=== PATIENT | female | born 1995 | race African-American/Black ===

== ENCOUNTER 2023-03-17 10:38 | Inpatient (IN) | payer MEDICAID, OTHER ==
[2023-03-17] MEDS ORDERED: Lidocaine 1% (PF) 30 ML VIAL SC PRN (20:06)
[2023-03-17] MEDS ORDERED: Ondansetron PF 4 MG/2 ML Vial IVP PRN (20:06)
[2023-03-17] MEDS ORDERED: Diphenoxylate HCl/Atropine Tablet PO PRN (20:06)
[2023-03-17] MEDS ORDERED: hydrALAZINE 20 MG/ML VIAL SLOW IVP PRN (20:06)
[2023-03-17] MEDS ORDERED: Acetaminophen 500 MG TAB PO PRN (20:06)
[2023-03-17] MEDS ORDERED: Methylergonovine 0.2 MG/ML VIAL IM PRN (20:06)
[2023-03-17] MEDS ORDERED: Tranexamic Acid 1,000 MG/10 ML VIAL IVP PRN (20:06)
[2023-03-17] MEDS ORDERED: fentaNYL 50 mcg/mL 1 mL Vial SLOW IVP PRN (20:06)
[2023-03-17] MEDS ORDERED: Carboprost 250 MCG/ML AMP IM PRN (20:06)
[2023-03-17] MEDS ORDERED: Promethazine HCl 25 MG/ML VIAL IM PRN (20:06)
[2023-03-17] MEDS ORDERED: Docusate 100 MG CAP PO PRN (20:06)
[2023-03-17] MEDS ORDERED: Misoprostol 200 MCG TAB PR PRN (20:06)
[2023-03-17] MEDS ORDERED: Ibuprofen 800 MG TAB PO PRN (20:14)
[2023-03-17] MEDS ORDERED: Oxytocin 30 units/NS 500 ML 500 ML IV SCH ×2 (20:15)
[2023-03-17] MEDS ORDERED: Lactated Ringer's 1,000 ML IV SCH (20:15)
[2023-03-17] MEDS ORDERED: Penicillin G Potassium 5 MILL.UNITS in Sodium Chloride 0.9% 100 ML IVPB SCH (20:15)
[2023-03-17 20:50] VITALS: BMI 32.1
[2023-03-17] MEDS ORDERED: Misoprostol 100 MCG TAB VAG SCH (21:00)
[2023-03-17 21:15] LABS: Hematocrit 34.2 % (34.9-44.5); Hemoglobin 12.2 g/dL (12.0-15.5); Mean Corpuscular HGB CONC 35.7 g/dL (32.0-36.0); Mean Corpuscular Hemoglobin 29.1 pg (27.0-33.0); Mean Corpuscular Volume 81.6 fl (81.6-98.3); Mean Platelet Volume 10.1 fl (7.4-10.4); Platelet Count 220 10x3/uL (150-450); RBC Distribution Width 13.3 % (11.5-14.5); Red Blood Cell (RBC) Count 4.19 10x6/uL (3.90-5.03); White Blood Cell (WBC) Count 11.8 10x3/uL (3.5-10.5)
[2023-03-17 22:38] LABS: Syphilis Antibody Nonreactive (Nonreactive); Syphilis Antibody Index 0.05 S/CO (<1.00 Non-Reactive)
[2023-03-17 22:39] LABS: HBSAg Index 0.17 S/CO (0-0.99); Hep B Surf Ag - L&D Non-Reactive S/CO (NonReactive)
[2023-03-18] MEDS: Penicillin G 2.5 MILL.units 2.5 MILL.UNITS in Premix 1 BAG IVPB SCH ×3 (01:44→10:35)
[2023-03-18] MEDS ORDERED: Acetaminophen 500 MG TAB PO PRN (06:05)
[2023-03-18] MEDS ORDERED: Communication Order-Pharmacy FS SCH (12:30)
[2023-03-18] MEDS ORDERED: diphenhydrAMINE 50 MG/ML VIAL IVP PRN (12:30)
[2023-03-18] MEDS ORDERED: Naloxone HCl 0.4 mg/ml Vial IVP PRN ×2 (12:30)
[2023-03-18] MEDS ORDERED: Promethazine HCl 25 MG/ML VIAL IM PRN (12:30)
[2023-03-18] MEDS ORDERED: Ondansetron PF 4 MG/2 ML Vial IVP PRN ×2 (12:30→22:14)
[2023-03-18] MEDS ORDERED: Acetaminophen 325 MG TAB PO PRN (12:30)
[2023-03-18] MEDS ORDERED: Lactated Ringer's 500 ML IV PRN (12:30)
[2023-03-18] MEDS ORDERED: fentaNYL 2 mcg/Ropivacaine 0.2% Epidural 100 ML CADD EPIDURAL SCH (12:30)
[2023-03-18] MEDS ORDERED: ePHEDrine Sulfate 50 MG/10 ML VIAL SLOW IVP PRN (12:30)
[2023-03-18] MEDS ORDERED: Moisturizing Cream (Eucerin) 113 GM JAR TOP PRN (12:30)
[2023-03-18] MEDS ORDERED: fentaNYL/Ropivacaine Epidural 100 ML ONE (12:33)
[2023-03-18] MEDS ORDERED: Lidocaine 4% Patch TD SCH (18:00)
[2023-03-18] MEDS ORDERED: Bupivacaine 0.25% HCL 30 ML VIAL ONE (19:01)
[2023-03-18] MEDS ORDERED: Boostrix 0.5 ML (Tdap) VIAL (>/=7 yrs of age) IM ONE (22:14)
[2023-03-18] MEDS ORDERED: diphenhydrAMINE 25 MG CAP PO PRN (22:14)
[2023-03-18] MEDS ORDERED: hydrALAZINE 20 MG/ML VIAL SLOW IVP PRN (22:14)
[2023-03-18] MEDS ORDERED: Milk Of Magnesia 30 ML UDCUP PO PRN (22:14)
[2023-03-18] MEDS ORDERED: Bisacodyl 10 MG SUPP PR PRN (22:14)
[2023-03-18] MEDS ORDERED: Ibuprofen 800 MG TAB PO SCH (22:30)
[2023-03-18] MEDS ORDERED: Docusate 100 MG CAP PO SCH (22:30)
[2023-03-19] MEDS: Ibuprofen 800 MG TAB PO SCH ×3 (05:43→21:19)
[2023-03-19] MEDS: Docusate 100 MG CAP PO SCH ×2 (09:15→21:19)
[2023-03-19 09:26] LABS: #Eosinphils 0.6 10x3/uL (0.0-0.5); #Monocytes 1.1 10x3/uL (0.0-1.1); #Neutrophils 12.2 10x3/uL (1.5-8.4); %Basophils 0.2 % (0.0-2.0); %Eosinophils 3.5 % (0.0-6.0); %Monocytes 6.6 % (0.0-10.0); %Neutrophils 76.2 % (40.0-75.0); Hematocrit 29.9 % (34.9-44.5); Hemoglobin 10.9 g/dL (12.0-15.5); Mean Corpuscular HGB CONC 36.5 g/dL (32.0-36.0); Mean Corpuscular Hemoglobin 29.4 pg (27.0-33.0); Mean Corpuscular Volume 80.6 fl (81.6-98.3); Mean Platelet Volume 9.9 fl (7.4-10.4); Platelet Count 216 10x3/uL (150-450); RBC Distribution Width 13.1 % (11.5-14.5); Red Blood Cell (RBC) Count 3.71 10x6/uL (3.90-5.03)
[2023-03-19 09:35] LABS: ALT (SGPT) 36 U/L (8-55); AST (SGOT) 36 U/L (5-34); Alkaline Phosphatase 129 U/L (40-110); Anion Gap 13 mmol/L (10-20); BUN (Urea Nitrogen) 5 mg/dL (7.0-18.7); Bilirubin, Total 0.5 mg/dL (0.2-1.2); Calc. Creatinine Clearance 179 mL/min (70-130); Calcium 9.4 mg/dL (7.8-10.44); Carbon Dioxide 21 mmol/L (22-29); Chloride 109 mmol/L (98-107); Estimated GFR 122; Glucose 99 mg/dL (70-105); Potassium 3.8 mmol/L (3.5-5.1); Sodium 139 mmol/L (136-145)
[2023-03-19] MEDS: Ferrous Sulfate 325 MG TAB PO SCH ×2 (10:00→19:31)
[2023-03-19] MEDS ORDERED: Benzocaine-Menthol 82.5 ML CAN TOP PRN (12:20)
[2023-03-19 14:03] LABS: Creatinine, Urine 21.13 mg/dL (47-110); Protein, Urine Random Quant Less than 10 mg/dL (1-14)
[2023-03-20] MEDS: Ibuprofen 800 MG TAB PO SCH (06:19)
[2023-03-20] MEDS: Docusate 100 MG CAP PO SCH (08:47)
[2023-03-20] MEDS: Ferrous Sulfate 325 MG TAB PO SCH (08:48)
[2023-03-20 14:38] VITALS: BP 125/72; TEMP 98.2
== END 2023-03-20 13:00 | disposition home or self-care (01) | DRG 807 ==
LOC: CSHLD 18:22 → CSHPP 03-18 22:00
PROVIDERS: ADMIT Obstetrics & Gynecology; ATTEND Obstetrics & Gynecology
PROC: 10E0XZZ Delivery of Products of Conception, External Approach (ICD-10-PCS; principal; 2023-03-18)
PROC: 0KQM0ZZ Repair Perineum Muscle, Open Approach (ICD-10-PCS; 2023-03-18)
PROC: 3E033XZ Introduction of Vasopressor into Peripheral Vein, Percutaneous Approach (ICD-10-PCS; 2023-03-18)
PROC: 3E033VJ Introduction of Other Hormone into Peripheral Vein, Percutaneous Approach (ICD-10-PCS; 2023-03-18)
PROC: 10907ZC Drainage of Amniotic Fluid, Therapeutic from Products of Conception, Via Natural or Artificial Opening (ICD-10-PCS; 2023-03-18)
PROC: 0UQMXZZ Repair Vulva, External Approach (ICD-10-PCS; 2023-03-18)
DX: O99.824 Streptococcus B carrier state complicating childbirth (principal); Z37.0 Single live birth; O48.0 Post-term pregnancy; Z3A.41 41 weeks gestation of pregnancy; O16.5 Unspecified maternal hypertension, complicating the puerperium
CPT/HCPCS: 36415; 51702; 80053; 82570; 84156; 85025; 85027; 86780; 86850; 86900; 86901; 87340; J2540; J2590; J3490; S0020